=== PATIENT | male | born 1955 | race African-American/Black ===

== ENCOUNTER 2018-06-28 18:15 | Emergency (ER) | payer OTHER ==
[~2018-06-28] VITALS: Ht 177.8 cm; Wt 99.8 kg
[2018-06-28] MEDS ORDERED: ASPIR 8181 MG PO (18:22)
[2018-06-28] MEDS ORDERED: LISINOPRIL10 MG PO (18:22)
[2018-06-28] MEDS ORDERED: HYDROCHLOROTH12.5 M2 PO (18:22)
[2018-06-28 20:29] VITALS: BP 151/91
== END 2018-06-28 20:30 | disposition home or self-care (01) ==
LOC: ER 18:15
DX: S80.11XA Contusion of right lower leg, initial encounter (principal); I10 Essential (primary) hypertension; W01.198A Fall on same level from slipping, tripping and stumbling with subsequent striking against other object, initial encounter; Y93.89 Activity, other specified; Y92.89 Other specified places as the place of occurrence of the external cause; Y99.8 Other external cause status

== ENCOUNTER 2019-10-29 11:49 | Emergency (ER) | payer OTHER ==
[~2019-10-29] VITALS: Ht 177.8 cm; Wt 101.6 kg
[~2019-10-29 11:49] MED LIST: ASPIR 8181 MG PO; HYDROCHLOROTH12.5 M2 PO; LISINOPRIL10 MG PO
[2019-10-29] MEDS ORDERED: COZAAR 25 MG TA25 MG PO (11:56)
[2019-10-29] MEDS ORDERED: ACID REDUCER20 M1 PO (11:57)
[2019-10-29 13:12] LABS: ABSOLUTE NEUTROPHILS 5.5 thou/uL (1.4-8.2); BASOPHILS 1.1 % (0.0-2.0); EOSINOPHILS 0.9 % (0.0-3.0); HEMATOCRIT 47.4 % (42.0-52.0); HEMOGLOBIN 15.5 gm/dL (14.0-18.0); LYMPHOCYTES 29.5 % (24.0-44.0); MCH 30.9 pg (26.0-34.0); MCHC 32.8 g/dL (28.0-37.0); MONOCYTES 8.5 % (1.0-8.0); PLATELET COUNT 246 thou/uL (150-400); RBC 5.04 mil/uL (4.50-6.00); RDW 14.6 % (10.5-14.5); WBC 9.2 thou/uL (4.0-11.0)
[2019-10-29 13:29] LABS: CALCIUM 8.8 mg/dL (8.5-10.1); CREATININE 1.1 mg/dL (0.7-1.3); POTASSIUM 3.9 mmol/L (3.5-5.1)
[2019-10-29 13:35] LABS: ALBUMIN 3.8 g/dL (3.4-5.0); TOTAL PROTEIN 7.5 g/dL (6.4-8.2)
[2019-10-29] MEDS ORDERED: NORCO 5-325 TA1 EAC1 PO (15:20)
[2019-10-29 15:26] VITALS: BP 136/85
--- NOTE | 2019-11-03 12:32 | EKG ---
[facility] [place] [place] [address] ELECTROCARDIOGRAM REPORT Name: LIN BLACK Room #: DEP [facility]#: [id number] Admission: 10/29/19 Attend Phys: Discharge: 10/29/19 Date of : 57 Report #: [id number] THIS REPORT FOR: cc: Sruthi Ross Genevieve K. FNP Lundgren, Craig H. MD 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 : 1955 Requested By: Des Aguirre Order Number: [id number] MD: Manuel Godwin Measurements Intervals [place] Rate: 50 P: 36 CO: 173 QRS: -22 QRSD: 94 T: -3 QT: 417 QTc: 381 Interpretive Statements Sinus rhythm Borderline left axis deviation Borderline T abnormalities, inferior leads No previous ECG available for comparison Electronically Signed On 10-29-2019 17:27:01 FINANCIAL AID ADMINISTRATOR by Manuel Godwin [email or web address] <ELECTRONICALLY SIGNED> By: Manuel Godwin MD, [facility] 10/29/19 1727 1150 1150 Manuel Godwin MD, [facility] /EPI
== END 2019-10-29 15:28 | disposition home or self-care (01) ==
LOC: ER 11:49
PROVIDERS: Physician Assistant
DX: R07.89 Other chest pain (principal); I10 Essential (primary) hypertension

== ENCOUNTER → 2019-11-17 | Outpatient (CLI) | payer OTHER ==
[~2019-11-17] MED LIST changes: +ACID REDUCER20 M1 PO; +COZAAR 25 MG TA25 MG PO; +NORCO 5-325 TA1 EAC1 PO
== END ==
LOC: SJCVCIMAG 08:08
DX: I08.2 Rheumatic disorders of both aortic and tricuspid valves (principal); I11.9 Hypertensive heart disease without heart failure; R07.9 Chest pain, unspecified; E78.5 Hyperlipidemia, unspecified

== ENCOUNTER → 2019-11-18 | Outpatient (CLI) | payer OTHER | LOC: SJCVCIMAG 08:41 | DX: I25.89 Other forms of chronic ischemic heart disease (principal); I49.9 Cardiac arrhythmia, unspecified; I10 Essential (primary) hypertension; E78.5 Hyperlipidemia, unspecified; R07.9 Chest pain, unspecified; R53.83 Other fatigue ==

== ENCOUNTER → 2019-12-02 | Outpatient (CLI) | payer OTHER ==
[~2019-12-02] VITALS: Ht 177.8 cm; Wt 102.5 kg
[2019-12-02 10:24] LABS: HEMATOCRIT 46.5 % (42.0-52.0); HEMOGLOBIN 15.3 gm/dL (14.0-18.0); MCH 30.8 pg (26.0-34.0); MCHC 32.9 g/dL (28.0-37.0); MCV 93.5 fL (80.0-100.0); RBC 4.97 mil/uL (4.50-6.00); RDW 14.2 % (10.5-14.5)
[2019-12-02 10:39] LABS: CALCIUM 8.5 mg/dL (8.5-10.1); CREATININE 1.2 mg/dL (0.7-1.3); POTASSIUM 3.8 mmol/L (3.5-5.1)
--- NOTE | 2019-12-02 12:45 | EKG ---
[facility] [place] [place] [address] ELECTROCARDIOGRAM REPORT Name: LIN BLACK Room #: REG [facility]#: [id number] Admission: 12/02/19 Attend Phys: Eder Marquez Discharge: Date of : 57 Report #: [id number] THIS REPORT FOR: cc: Lizette Connell MD,Lizette Perez,Darrian Sherman MD ~ THIS REPORT FOR: //name// [facility] Test Date: 2019-12-02 Test Time: 10:31:45 Pat Name: LIN BLACK Department: Room: Gender: Jr. 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: Ed DOE : 1955 Requested By: Eder Marquez Order Number: [id number] MD: Darrian Perez Measurements Intervals [place] Rate: 45 P: 35 [place]: 179 QRS: -12 QRSD: 95 T: -1 QT: 450 QTc: 390 Interpretive Statements Sinus bradycardia Borderline T abnormalities, inferior leads Compared to ECG 10/29/2019 11:50:20 Sinus rhythm no longer present T-wave abnormality still present Electronically Signed On 12-02-2019 12:44:51 CDT by Darrian Perez [email or web address] <ELECTRONICALLY SIGNED> By: Darrian Perez MD 12/02/19 1244 1031 1031 Darrian Perez MD /EPI
--- NOTE | 2019-12-10 16:11 | CATHLAB ---
[facility] [place] [place] [address] INVASIVE PROCEDURE REPORT Name: LIN BLACK Room #: REG [facility]#: [id number] Admission: 12/02/19 Attend Phys: Eder Marquez Discharge: Date of : 57 Report #: [id number] THIS REPORT FOR: cc: Lizette Connell MD, Alice MD Lammoglia, Francisco J. MD ~ APPROVED REPORT Study performed: 12/02/2019 10:58:15 Patient Details Patient Status: Out-Patient Room #: The patient is a 64 year-old male Event Personnel Eder Marquez Seal Mixing Operator, Daisy Ramírez RN RN, Chris Tamayo Scrub, Paschal, Christoph, RTR, Monitor Procedures Performed Art Access - R femoral artery* Left Heart Cath w/or w/o Coronaries [id number] [facility] [id number] Initial Mod Sed Same Phys/QHP Gr5y [id number] Mod Sed Same Phys/QHP Ea [id number] Hemostasis with Manual pressure, supervision of conscious sedation Indication Positive stress test Procedure Narrative The Right Groin^ was infiltrated with 1% Lidocaine subcutaneous anesthesia. A PINNACLE 4FR Sheath #[id number] sheath was inserted into the RFA^. Coronary angiography was performed using coronary diagnostic catheters. The right coronary system was accessed and visualized with a JR4 catheter. The left coronary system was accessed and visualized with a JL4 catheter. The left ventricle was accessed and visualized with a angled pigtail catheter. Left ventricular/Aortic Valve gradient assessed via catheter pullback. Hemostasis was obtained with manual pressure following sheath removal without any complications. There was no hematoma. Intraoperative Conscious Sedation Sedation start time: 11:29 Case end Time: 12:10 Fluoro Time: 2.70 minutes [facility] [address] [place] [address] INVASIVE PROCEDURE REPORT Name: LIN BLACK Room #: [facility]#: [id number] Admission: 12/02/19 Attend Phys: Eder Nuñez Discharge: Date of : 57 Report #: [id number] Dose: DAP 5556.00 cGycm2 843 mGy Contrast Type and Amount: Omnipaque 65 ml Coronary Angiography The patient's coronary anatomy is right dominant. Diagnostic Cath Left Main Normal origin and caliber bifurcates left anterior descending left circumflex. Free of high-grade disease LAD Moderate caliber type III vessel which courses in the anterior interventricular sulcus giving rise to septal and diagonal branches as it proceeds the apex and terminates in the posterior inferoapical wall. In the proximal portion of the distal third there appears to be a region with a partial bridge noted. No high-grade lesions are present Diagonal 1 Small insignificant caliber vessel free of high-grade disease Diagonal 2 Small insignificant caliber vessel free of high-grade disease Circumflex Moderate caliber vessel of normal origin the rise to an early marginal branch and a small vessel coursing along the ramus intermedius past but not at the standard origin. The vessel then continues on giving rise to a second marginal branch is moderate to large caliber. The vessel then terminates as a small posterior wall branch in the AV groove OM1 Moderate caliber vessel coursing lateral aspect of the left ventricle free of high-grade disease OM2 Small-caliber vessel long in length without high-grade lesions noted OM3 Monitor large-caliber vessel coursing along the lateral inferior wall towards is an his course free of high-grade lesions Right Coronary Small to moderate caliber vessel free of significant obstructive lesions R PDA Small-caliber vessel without stenosis is a courses in the posterior interventricular sulcus towards the apex Left Ventriculography Left Ventriculography was not performed. Hemodynamics The aortic pressure is 139/80 mmHg with a mean of 102 mmHg. The left ventricular pressure is 138/9 mmHg with a mean of mmHg. The left ventricular end diastolic pressure is 22 mmHg. Conclusion 1. 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 Normal hemodynamics Recommendations Cardiac Risk Reduction Program Medical Therapy <ELECTRONICALLY SIGNED> By: Eder Marquez MD 12/10/191609 09 09 Eder Marquez MD /INF
== END | disposition home or self-care (01) ==
LOC: CATH 09:35
PROVIDERS: Internal Medicine
DX: R94.39 Abnormal result of other cardiovascular function study (principal); I10 Essential (primary) hypertension; E78.5 Hyperlipidemia, unspecified; Z82.49 Family history of ischemic heart disease and other diseases of the circulatory system; Z79.82 Long term (current) use of aspirin; Z79.899 Other long term (current) drug therapy; Z98.890 Other specified postprocedural states

== ENCOUNTER 2020-04-22 11:31 | Emergency (ER) | payer OTHER ==
[~2020-04-22] VITALS: Ht 177.8 cm; Wt 97.1 kg
[2020-04-22] MEDS ORDERED: NORCO 5-325 TA1 EAC2 PO (13:08)
[2020-04-22] MEDS ORDERED: CYCLOBENZAPRINE5 MG PO (13:08)
[2020-04-22 13:19] VITALS: BP 157/86
== END 2020-04-22 13:19 | disposition home or self-care (01) ==
LOC: ER 11:31
DX: R51 Headache (principal); M62.838 Other muscle spasm; M25.511 Pain in right shoulder; M25.512 Pain in left shoulder; I10 Essential (primary) hypertension; E78.5 Hyperlipidemia, unspecified; Z79.82 Long term (current) use of aspirin; Z79.899 Other long term (current) drug therapy; V47.5XXA Car driver injured in collision with fixed or stationary object in traffic accident, initial encounter; Y93.89 Activity, other specified; Y92.410 Unspecified street and highway as the place of occurrence of the external cause; Y99.8 Other external cause status